=== PATIENT | male | born 1945 | race Caucasian/White ===

== ENCOUNTER 2018-03-26 13:27 | Emergency (ER) | payer MEDICARE, BC ==
--- NOTE | 2018-03-26 14:37 | EDM.PDOC ---
ED HPI GENERAL MEDICAL PROBLEM - General Chief Complaint: General Stated Complaint: BLOOD PRESSURE HIGH [id number] Time Seen by Provider: 03/26/18 14:30 Source of Information: Reports: Patient, RN, RN Notes Reviewed History Limitations: Reports: No Limitations - History of Present Illness INITIAL COMMENTS - FREE TEXT/NARRATIVE: Patient presents to ER with complaint of increased blood pressure. Patient had stents (4) placed on Wednesday in [place]. Patient states he took his blood pressure at home today and it was 175/88. States he took it 3 times. Upon arrival patient states he felt anxious at the time. Now states he feels much better. Denies fever, chills, nausea, vomiting, diarrhea, chest pain or shortness of breaths. Onset: Today Severity: Mild - Related Data Allergies Allergy/AdvReac Type Severity Reaction Status Date / Time No Known Allergies Allergy Verified 03/26/18 13:40 Home Meds: Home Meds Aspirin [Halfprin] 243 mg PO DAILY 03/26/18 [History] Clopidogrel [Plavix] 75 mg PO DAILY 03/26/18 [History] Gemfibrozil 600 mg PO DAILY 03/26/18 [History] Lisinopril 20 mg PO DAILY 03/26/18 [History] Metoprolol Succinate [Toprol Xl] 50 mg PO DAILY 03/26/18 [History] Multivitamin [Multi-Vitamin Daily] 1 tab PO DAILY 03/26/18 [History] Vernon-3/DHA/Epa/Fish Oil [Fish Oil 1,000 mg Softgel] 1,000 mg PO BID 03/26/18 [ History] Potassium Chloride [Klor-Con 10] 50 meq PO DAILY 03/26/18 [History] Simvastatin [Zocor] 40 mg PO BEDTIME 03/26/18 [History] amLODIPine [Norvasc] 2.5 mg PO BEDTIME 03/26/18 [History] Past Medical History HEENT History: Reports: Hard of Hearing, Impaired Vision Other HEENT History: wears glasses Cardiovascular History: Reports: Bypass, High Cholesterol, Hypertension, [place], Stents Other Cardiovascular History: heart surgury 1995, stents different years Respiratory History: Reports: None Other Genitourinary History: had a UTI, Musculoskeletal History: Reports: None Neurological History: Reports: None Psychiatric History: Reports: None Endocrine/Metabolic History: Reports: None Hematologic History: Reports: None Immunologic History: Reports: None Oncologic (Cancer) History: Reports: None Dermatologic History: Reports: None - Infectious Disease History Infectious Disease History: Reports: Chicken Pox, Measles, Mumps - Past Surgical History HEENT Surgical History: Reports: Adenoidectomy, Tonsillectomy Cardiovascular Surgical History: Reports: Carotid Stents (4 on Wednesday, March 20, 2018.), Coronary Artery Bypass Social & Family History - Tobacco Use Smoking Status *Q: Never Smoker Second Hand Smoke Exposure: No - Caffeine Use Caffeine Use: Reports: Coffee, Soda - Recreational Drug Use Recreational Drug Use: No ED ROS GENERAL - Review of Systems Review Of Systems: ROS reveals no pertinent complaints other than HPI. ED EXAM, GENERAL - Physical Exam Exam: See Below Exam Limited By: No Limitations General Appearance: Alert, WD/WN, No Apparent Distress Eye Exam: Bilateral Eye: Normal Inspection Ears: Normal External Exam, Normal Canal, Hearing Grossly Normal, Normal TMs Nose: Normal Inspection, Normal Mucosa, No Blood Throat/Mouth: Normal Inspection, Normal Lips, Normal Teeth, Normal Gums, Normal Oropharynx, Normal Voice, No Airway Compromise Head: Atraumatic, Normocephalic Neck: Normal Inspection, Supple, Non-Tender, Full Range of Motion Respiratory/Chest: No Respiratory Distress, Lungs Clear, Normal Breath Sounds, No Accessory Muscle Use, Chest Non-Tender Cardiovascular: Normal Peripheral Pulses, Regular Rate, Rhythm, No Edema, No Gallop, No JVD, No Murmur, No Rub GI/Abdominal: Normal Bowel Sounds, Soft, Non-Tender, No Organomegaly, No Distention, No Abnormal Bruit, No Mass (Male) Exam: Deferred Rectal (Males) Exam: Deferred Back Exam: Normal Inspection, Full Range of Motion, NT Extremities: Normal Inspection, Normal Range of Motion, Non-Tender, Normal Capillary Refill, No Pedal Edema Neurological: Alert, Oriented, CN II-XII Intact, Normal Cognition, Normal Gait, Normal Reflexes, No Motor/Sensory Deficits Psychiatric: Normal Affect, Normal Mood Skin Exam: Warm, Dry, Intact, Normal Color, No Rash Lymphatic: No Adenopathy Course - Vital Signs Last Recorded V/S: Last Vital Signs Temp 98.4 F 03/26/18 14:23 Pulse 55 L 03/26/18 14:23 Resp 16 03/26/18 14:23 BP 112/66 03/26/18 14:23 Pulse Ox 98 03/26/18 14:23 Departure - Departure Time of Disposition: 14:36 Disposition: Home, Self-Care 01 Condition: Good Clinical Impression: Worried well - Discharge Information Instructions: Hypertension, [id number] Referrals: Carmela Elizabeth NP [Primary Care Provider] - Forms: ED Department Discharge Additional Instructions: Follow up with your primary care facility Continue to take medications as prescribed
== END 2018-03-26 14:42 | disposition home or self-care (01) ==
LOC: DL.ED 13:27
DX: Z71.1 Person with feared health complaint in whom no diagnosis is made (principal); E78.00 Pure hypercholesterolemia, unspecified; I10 Essential (primary) hypertension; I25.2 Old myocardial infarction; Z79.82 Long term (current) use of aspirin; Z79.899 Other long term (current) drug therapy
CPT/HCPCS: 99283

== ENCOUNTER 2021-04-21 05:47 | Emergency (ER) | payer MEDICARE, BC ==
--- NOTE | 2021-04-21 06:19 | EDM.PDOC ---
<Carmela Lauren - Last Filed: 04/21/21 12:36> ED HPI GENERAL MEDICAL PROBLEM - General Chief Complaint: Chest Pain Stated Complaint: AMBULANCE Time Seen by Provider: 04/21/21 06:03 - Related Data Allergies Allergy/AdvReac Type Severity Reaction Status Date / Time lisinopril Allergy Cannot Verified 04/21/21 06:18 Remember Home Meds: Home Meds Aspirin [Halfprin] 81 mg PO DAILY 03/26/18 [History] Clopidogrel [Plavix] 75 mg PO DAILY 03/26/18 [History] Multivitamin [Multi-Vitamin Daily] 1 tab PO DAILY 03/26/18 [History] Simvastatin [Zocor] 40 mg PO BEDTIME 03/26/18 [History] amLODIPine [Norvasc] 5 mg PO BEDTIME 03/26/18 [History] Nitroglycerin 0.4 mg PO ASDIRECTED PRN 04/21/18 [History] Omeprazole 20 mg PO DAILY 04/21/21 [History] #1 Interpretation Rhythm: Other Course - Radiology Interpretation Free Text/Narrative:: [facility] Final Radiology Report Call: [phone] assistance Online chat: [email or web address] Name: TONIE CORTES Age: 75Years M Date: 04/21/2021 SSN: -- : [id number] Study: CR CHEST 1V FRONTAL Requesting Physician: TRINA JO Images: 1 Addl Studies: Provided Clinical History: chest pain Contrast: Contrast Medium: Contrast Amount: Contrast Method: CONFIDENTIALITY STATEMENT This report is intended only for use by the referring physician, and only in accordance with law. If you received this in error, call [phone]. Page 1 of 1 PROCEDURE INFORMATION: Exam: XR Chest Exam date and time: 04/21/2021 6:11 AM Age: 75 years old Clinical indication: Other: Chest pain TECHNIQUE: Imaging protocol: XR of the chest. Views: 1 view. COMPARISON: CT Chest wo Cont 06/21/2019 10:08 AM FINDINGS: Tubes, catheters and devices: Again noted are sternal wires. Lungs: Unremarkable. No consolidation. Pleural spaces: Unremarkable. No pleural effusion. No pneumothorax. Heart/Mediastinum: Unremarkable. No cardiomegaly. Bones/joints: Unremarkable. IMPRESSION: No acute cardiopulmonary disease. Thank you for allowing us to participate in the care of your patient. Dictated and Authenticated by: John Magallanes MD 04/21/2021 7:42 AM Central Time ([place] & [place]) - Re-Assessments/Exams Free Text/Narrative Re-Assessment/Exam: 04/21/21 Troponin 159. Case discussed with Dr. Matt, ED physician at [facility], who accepted patient for transfer. Findings of examination, lab work, imaging, and discussion with Dr. Matt reviewed with patient. Patient verbalized understanding and agreement with the plan of care. Departure - Departure Time of Disposition: 07:46 Disposition: DC/Tfer to [facility] 02 Reason for Transfer *Q: Primary PCI Indicated Condition: Fair Clinical Impression: Hypokalemia, Elevated serum creatinine, Non-STEMI (non-ST elevated myocardial infarction) Referrals: PCP,Unobtain [Primary Care Provider] - Forms: ED Department Discharge, Interfacility Transfer EMTALA <Trina Jo - Last Filed: 04/23/21 09:20> ED HPI GENERAL MEDICAL PROBLEM - General Source of Information: Reports: Patient, RN History Limitations: Reports: No Limitations - History of Present Illness INITIAL COMMENTS - FREE TEXT/NARRATIVE: 75 year old male who presents to the ER with complains of chest pain. Patient reports he has had chest pain for the past two days intermittently and it resolved on its own. He wake up at 4:15 am with excruciating chest pain and he took Nitro 3 tabs and also received 4 tabs of aspirin 81 mg with moderate relief in his pain. Patient describes his pain as a discomfort at this time. He admits to a history of GERD and medicated for with prilosec prior to this visit. He denies any fevers, chills, nausea, vomiting, SOB, palpitation or swelling in his lower extremities. Middle Chest Pain Score (Numeric/FACES): 5 Past Medical History HEENT History: Reports: Hard of Hearing, Impaired Vision Other HEENT History: wears glasses Cardiovascular History: Reports: Bypass, High Cholesterol, Hypertension, [place], Stents Other Cardiovascular History: heart surgury 1996, stents different [id number] Respiratory History: Reports: None Other Genitourinary History: had a UTI, Musculoskeletal History: Reports: None Neurological History: Reports: None Psychiatric History: Reports: None Endocrine/Metabolic History: Reports: None Hematologic History: Reports: None Immunologic History: Reports: None Oncologic (Cancer) History: Reports: None Dermatologic History: Reports: None - Infectious Disease History Infectious Disease History: Reports: Chicken Pox, Measles, Mumps - Past Surgical History HEENT Surgical History: Reports: Adenoidectomy, Tonsillectomy Cardiovascular Surgical History: Reports: Carotid Stents, Coronary Artery Bypass Social & Family History - Caffeine Use Caffeine Use: Reports: Coffee, Soda ED ROS GENERAL - Review of Systems Review Of Systems: Comprehensive ROS is negative, except as noted in HPI. ED EXAM, GENERAL - Physical Exam Exam: See Below Exam Limited By: No Limitations General Appearance: Alert, Mild Distress Eye Exam: Bilateral Eye: PERRL Ears: Normal External Exam, Normal Canal, Hearing Grossly Normal, Normal TMs Nose: Normal Inspection, Normal Mucosa, No Blood Throat/Mouth: Normal Oropharynx, Normal Voice, No Airway Compromise Head: Atraumatic, Normocephalic Neck: Normal Inspection, Non-Tender Respiratory/Chest: No Respiratory Distress, Lungs Clear, Normal Breath Sounds, No Accessory Muscle Use, Chest Non-Tender Cardiovascular: Normal Peripheral Pulses, Regular Rate, Rhythm, No Edema, No Gallop, No JVD, No Murmur, No Rub GI/Abdominal: Normal Bowel Sounds, Soft, Non-Tender, No Organomegaly, No Distention, No Abnormal Bruit, No Mass Extremities: Normal Inspection, No Pedal Edema, Normal Capillary Refill Neurological: Alert, Oriented Psychiatric: Normal Affect, Normal Mood Skin Exam: Warm, Intact Lymphatic: No Adenopathy #1 Interpretation EKG Date: 04/21/21 Time: 05:58 Rhythm: Other (Sinus Rhythm @ 81) Course - Vital Signs Last Recorded V/S: Last Vital Signs Temp 98.5 F 04/21/21 06:10 Pulse 80 04/21/21 06:10 Resp 12 04/21/21 06:10 BP 140/70 04/21/21 06:10 Pulse Ox 99 04/21/21 06:10 - Orders/Labs/Meds Labs: Laboratory Tests 04/21/21 04/21/21 Range/Units 06:02 06:02 WBC 8.8 (5.0-10.0) 10^3/uL RBC 4.39 L (4.6-6.2) 10^6/uL Hgb 13.8 L (14.0-18.0) g/dL Hct 39.2 L (40.0-54.0) % MCV 89.3 (80-100) fL MCH 31.4 (27.0-34.0) pg MCHC 35.2 H (33.0-35.0) g/dL Plt Count 200 (150-450) 10^3/uL Neut % (Auto) 56.0 (42.2-75.2) % Lymph % (Auto) 34.2 (20.5-50.1) % Mcdonald % (Auto) 8.0 (2-8) % Eos % (Auto) 1.2 (1.0-3.0) % Baso % (Auto) 0.6 (0.0-1.0) % Sodium 146 H (136-145) mmol/L Potassium 3.1 L (3.5-5.1) mmol/L Chloride 106 (98-107) mmol/L Carbon Dioxide 28 (21-32) mmol/L Anion Gap 15.1 H (7-13) mEq/L BUN 19 H (7-18) mg/dL Creatinine 1.51 H (0.70-1.30) mg/dL Est Cr Clr Drug Dosing 37.56 mL/min Estimated GFR (MDRD) 45 BUN/Creatinine Ratio 12.6 (No establ ref range) Glucose 129 H (70-99) mg/dL Calcium 8.5 (8.5-10.1) mg/dL Total Bilirubin 0.4 (0.2-1.0) mg/dL AST 17 (15-37) U/L ALT 26 (16-63) U/L Alkaline Phosphatase 45 L (46-116) U/L Troponin I High Sens 157 H* (<=76) pg/mL Total Protein 6.9 (6.4-8.2) g/dL Albumin 3.7 (3.4-5.0) g/dL Globulin 3.2 Albumin/Globulin Ratio 1.2 Meds: Medications Discontinued Medications Generic Name Dose Route Start Last Admin Trade Name Freq PRN Reason Stop Dose Admin Lactated Ringer's 1,000 mls @ 500 mls/hr 04/21/21 07:05 04/21/21 07:19 Ringers, Lactated IV 04/21/21 09:04 500 mls/hr .BOLUS ONE Administration Potassium Chloride 20 meq/ 100 mls @ 50 mls/hr 04/21/21 07:06 04/21/21 07:19 Premix IV 04/21/21 09:05 50 mls/hr ONETIME ONE Administration Heparin Sodium/Sodium Chloride 25,000 units in 500 mls @ 19.339 mls/hr 04/21/21 07:15 04/21/21 07:16 Heparin 25,000 Units In 1/2 Ns 500 Ml IV 11 units/kg/hr TITRATE LUIS 19.339 mls/hr Administration Protocol 11 UNITS/KG/HR
[2021-04-21 06:34] LABS: ANION GAP 15.1 mEq/L (7-13)
[2021-04-21] MEDS ORDERED: Lactated Ringers 1,000 ML IV ONE (07:05)
[2021-04-21] MEDS ORDERED: Potassium Chloride 20 MEQ in Premix Bag 1 BAG IV ONE (07:06)
[2021-04-21] MEDS ORDERED: Heparin Sodium/0.45% NaCl 25,000 UNITS/500 ML BAG IV SCH (07:15)
--- NOTE | 2021-04-21 07:42 | CR ---
PROCEDURE INFORMATION: Exam: XR Chest Exam date and time: 04/21/2021 6:11 AM Age: 75 years old Clinical indication: Other: Chest pain TECHNIQUE: Imaging protocol: XR of the chest. Views: 1 view. COMPARISON: CT Chest wo Cont 06/21/2019 10:08 AM FINDINGS: Tubes, catheters and devices: Again noted are sternal wires. Lungs: Unremarkable. No consolidation. Pleural spaces: Unremarkable. No pleural effusion. No pneumothorax. Heart/Mediastinum: Unremarkable. No cardiomegaly. Bones/joints: Unremarkable. IMPRESSION: No acute cardiopulmonary disease.
== END 2021-04-21 07:32 ==
LOC: DL.ED 05:47
DX: I21.4 Non-ST elevation (NSTEMI) myocardial infarction (principal); E87.6 Hypokalemia; R79.89 Other specified abnormal findings of blood chemistry; I25.2 Old myocardial infarction; K21.9 Gastro-esophageal reflux disease without esophagitis; Z95.5 Presence of coronary angioplasty implant and graft; Z79.82 Long term (current) use of aspirin; Z79.02 Long term (current) use of antithrombotics/antiplatelets; Z79.899 Other long term (current) drug therapy
CPT/HCPCS: 36415; 71045; 80053; 84484; 85025; 93005; 96374; 96375; 99285; J1644; J3480; J7120